=== PATIENT | female | born 1955 | race Caucasian/White ===

== ENCOUNTER 2021-08-23 10:20 | Outpatient (CLI) | payer MEDICARE, OTHER | END 2021-08-23 10:21 | disposition home or self-care (01) | LOC: CSHMAMMO 10:20 | PROVIDERS: ATTEND Family Medicine | DX: Z12.31 Encounter for screening mammogram for malignant neoplasm of breast (principal); Z98.890 Other specified postprocedural states | CPT/HCPCS: 77063; 77067 ==

== ENCOUNTER 2022-03-23 10:50 | Outpatient (CLI) | payer MEDICARE, OTHER | END 2022-03-23 10:51 | disposition home or self-care (01) | LOC: CSHLAB 10:50 | PROVIDERS: ATTEND Obstetrics & Gynecology | DX: Z01.812 Encounter for preprocedural laboratory examination (principal); Z20.822 Contact with and (suspected) exposure to COVID-19; N39.3 Stress incontinence (female) (male) | CPT/HCPCS: 85027; 86850; 86900; 86901; 87811 ==

== ENCOUNTER 2022-03-28 07:58 | Observation (INO) | payer MEDICARE, OTHER ==
[2022-03-23 11:57] LABS: Hemoglobin 16.4 g/dL (12.0-15.5); Mean Corpuscular HGB CONC 33.4 g/dL (32.0-36.0); Mean Corpuscular Hemoglobin 30.7 pg (27.0-33.0); Mean Corpuscular Volume 91.8 fl (81.6-98.3); Mean Platelet Volume 11.1 fl (7.4-10.4); Platelet Count 293 10x3/uL (150-450); RBC Distribution Width 13.3 % (11.5-14.5); Red Blood Cell (RBC) Count 5.35 10x6/uL (3.90-5.03); White Blood Cell (WBC) Count 13.2 10x3/uL (3.5-10.5)
[2022-03-26 15:22] VITALS: BMI 31.9
[2022-03-28] MEDS ORDERED: CeleCOXIB 100 MG CAP ONE (08:11)
[2022-03-28] MEDS ORDERED: Gabapentin 300 MG CAP ONE (08:11)
[2022-03-28] MEDS ORDERED: Famotidine/PF 20 mg/2ml Vial ONE (08:12)
[2022-03-28] MEDS ORDERED: Methylene Blue 50 MG/10 ML AMPUL ONE (08:33)
[2022-03-28] MEDS ORDERED: Lidocaine 1% w/Epinephrine 1:100K 20 ML VIAL ONE (08:33)
[2022-03-28] MEDS ORDERED: Lidocaine 1% MPF 2 ML VIAL ONE (08:33)
[2022-03-28] MEDS ORDERED: Dexamethasone 20 MG/5 ML VIAL ONE (08:56)
[2022-03-28] MEDS ORDERED: Fentanyl 100 MCG/2 ML VIAL ONE ×2 (08:56→10:58)
[2022-03-28] MEDS ORDERED: PROPOFOL 20 ML ONE (08:56)
[2022-03-28] MEDS ORDERED: Ketorolac Tromethamine 30 MG/ML VIAL ONE (08:56)
[2022-03-28] MEDS ORDERED: Midazolam HCl 2 mg/2 ml Vial ONE (08:56)
[2022-03-28] MEDS ORDERED: Ondansetron PF 4 MG/2 ML Vial ONE (08:56)
[2022-03-28] MEDS ORDERED: Lidocaine 1% PF 5 ML VIAL ONE (08:56)
[2022-03-28] MEDS ORDERED: Clindamycin/D5W 900 mg/50 ml Premix Bag ONE (09:10)
[2022-03-28] MEDS ORDERED: Levofloxacin 500 mg/D5W 100 ml Premix Bag ONE (09:10)
[2022-03-28] MEDS ORDERED: Meperidine HCl/PF 25 MG/ML VIAL ONE (10:26)
[2022-03-28] MEDS ORDERED: Nicotine 21 MG PATCH TOP SCH (13:00)
[2022-03-28] MEDS ORDERED: Ventolin HFA Inhaler 60 PUFF INHALER INH PRN (13:11)
[2022-03-28] MEDS ORDERED: Acetaminophen 500 MG TAB PO PRN (13:13)
[2022-03-28] MEDS ORDERED: Ibuprofen 800 MG TAB PO PRN (13:18)
[2022-03-28] MEDS ORDERED: Polyvinyl Alcohol 1.4%/Povidone 0.6% Opth Drops EA EYE PRN (13:21)
[2022-03-28] MEDS ORDERED: HYDROcodone/Acetaminophen 5/325 mg Tablet PO PRN (14:36)
[2022-03-28] MEDS ORDERED: Ondansetron PF 4 MG/2 ML Vial IVP PRN (14:38)
[2022-03-28] MEDS ORDERED: Fentanyl 100 MCG/2 ML VIAL SLOW IVP PRN (14:38)
[2022-03-28] MEDS: HYDROcodone/Acetaminophen 5/325 mg Tablet PO PRN ×2 (14:49→19:54)
[2022-03-28] MEDS: Lactated Ringer's 1,000 ML IV SCH ×2 (14:50→23:20)
[2022-03-28] MEDS ORDERED: Atorvastatin Calcium 40 MG TAB PO SCH (21:00)
[2022-03-28] MEDS ORDERED: traZODone HCl 150 MG TAB PO SCH (21:00)
[2022-03-28] MEDS: Docusate 100 MG CAP PO SCH (21:31)
[2022-03-29] MEDS: HYDROcodone/Acetaminophen 5/325 mg Tablet PO PRN (07:20)
[2022-03-29] MEDS: Docusate 100 MG CAP PO SCH (07:23)
[2022-03-29] MEDS: Lactated Ringer's 1,000 ML IV SCH (07:25)
[2022-03-29 07:37] VITALS: BP 158/77; TEMP 97.9
[2022-03-29] MEDS ORDERED: Hydrochlorothiazide 25 MG TAB PO SCH (09:00)
[2022-03-29] MEDS ORDERED: Cholecalciferol 1,000 UNITS (25 MCG) TAB PO SCH (09:00)
[2022-03-29] MEDS ORDERED: Lisinopril 20 MG TAB PO SCH (09:00)
== END 2022-03-29 08:29 | disposition home or self-care (01) ==
LOC: CSHSDC 07:58 → CSHPED 12:36 → CSHPP 17:37
PROVIDERS: ADMIT Obstetrics & Gynecology; ATTEND Obstetrics & Gynecology
PROC: 0TSD0ZZ Reposition Urethra, Open Approach (ICD-10-PCS; principal; 2022-03-28)
PROC: 0JQC0ZZ Repair Pelvic Region Subcutaneous Tissue and Fascia, Open Approach (ICD-10-PCS; 2022-03-28)
DX: N39.3 Stress incontinence (female) (male) (principal); N81.6 Rectocele; N32.81 Overactive bladder; J44.9 Chronic obstructive pulmonary disease, unspecified; M19.90 Unspecified osteoarthritis, unspecified site; I10 Essential (primary) hypertension; E78.5 Hyperlipidemia, unspecified; Z85.3 Personal history of malignant neoplasm of breast; Z79.899 Other long term (current) drug therapy; Z88.0 Allergy status to penicillin; Z88.5 Allergy status to narcotic agent; Z91.048 Other nonmedicinal substance allergy status; Z20.822 Contact with and (suspected) exposure to COVID-19
CPT/HCPCS: 57250; 57288; 85027; 86850; 86900; 86901; 87811; 96360; 96361 ×2; C1781; G0378 ×2; 36415; J1100; J1885; J1956; J2175; J2250; J2405; J2704; J3010; J3490; J7120; Q9968; S0028

== ENCOUNTER 2022-11-19 12:22 | Outpatient (CLI) | payer MEDICARE, OTHER ==
[~2022-11-19 12:22] MED LIST: Iopamidol 300 61% 100 ML VIAL FS ONE
== END 2022-11-19 12:23 | disposition home or self-care (01) ==
LOC: CSHCT 12:22
PROVIDERS: ATTEND Family Medicine
DX: Z12.2 Encounter for screening for malignant neoplasm of respiratory organs (principal); F17.210 Nicotine dependence, cigarettes, uncomplicated; R31.29 Other microscopic hematuria; J43.9 Emphysema, unspecified; I25.10 Atherosclerotic heart disease of native coronary artery without angina pectoris; I25.84 Coronary atherosclerosis due to calcified coronary lesion; K76.0 Fatty (change of) liver, not elsewhere classified
CPT/HCPCS: 71271; 74178; 82565

== ENCOUNTER 2022-12-26 11:51 | Outpatient (CLI) | payer MEDICARE, OTHER | END 2022-12-26 11:52 | disposition home or self-care (01) | LOC: CSHMAMMO 11:51 | PROVIDERS: ATTEND Family Medicine | DX: Z12.31 Encounter for screening mammogram for malignant neoplasm of breast (principal) | CPT/HCPCS: 77063; 77067 ==